=== PATIENT | female | born 1930 | race Caucasian/White ===

== ENCOUNTER → 2017-08-31 | Outpatient (CLI) | payer MEDICARE, BC ==
[~2017-08-31] MED LIST: DENOSUMAB 60 MG/ML 1 ML SYRINGE SQ ONE
[2017-08-31 13:48] VITALS: BP 113/71; PULSE 81; RESP 16; TEMP 98.1
== END ==
LOC: PROCWHC3 13:29
PROVIDERS: ATTEND Internal Medicine Geriatric Medicine
DX: M81.0 Age-related osteoporosis without current pathological fracture (principal)
CPT/HCPCS: 96372; J0897

== ENCOUNTER → 2018-03-17 | Outpatient (CLI) | payer MEDICARE, BC ==
[~2018-03-17] MED LIST changes: +DENOSUMAB 60 MG/ML 1 ML SYRINGE SQ NR; -DENOSUMAB 60 MG/ML 1 ML SYRINGE SQ ONE
[2018-03-17 14:07] VITALS: BP 130/71; PULSE 77; RESP 16; TEMP 98.1
== END ==
LOC: PROCWHC3 13:45
PROVIDERS: ATTEND Internal Medicine Geriatric Medicine
DX: M81.0 Age-related osteoporosis without current pathological fracture (principal)
CPT/HCPCS: 96372; J0897

== ENCOUNTER 2018-08-20 20:37 | Emergency (ER) | payer MEDICARE, BC ==
--- NOTE | 2018-08-20 21:29 | ED ---
Abdominal Pain HPI - General Chief Complaint: Abdominal Pain Stated Complaint: poss kidney stone Time Seen by Provider: 08/20/18 21:06 Source: patient Mode of arrival: wheelchair Limitations: no limitations - History of Present Illness Initial Comments: This patient is an 87-year-old woman who presents with left flank pain. She states that the pain started at approximate 7 PM tonight while she was just lying down. She is not able to characterize the pain well, even when offered different descriptors. She states that the pain was more severe but is now mild intensity. She has not noted worsening or relieving factors. She has not noted any associated symptoms. She believes that it is similar to the pain she had associated with a kidney stone which she had in 2017. MD Complaint: flank pain Onset/Timin -: hour(s) Location: L flank Radiation: none Migration to: no migration Severity: mild Quality: other (Unable to characterize) Consistency: constant Improves With: nothing Worsens With: nothing Associated Symptoms: denies other symptoms - Related Data Home Medications Medication Instructions Recorded Confirmed Ergocalciferol [Vitamin D2 50,000 unit PO [id number] 07/10/14 08/20/18 (DRISDOL)] Fluticasone/Salmeterol [Advair 1 puff INHALATION RT-DAILY 07/10/14 08/20/18 500-50 Diskus] Melatonin 3 mg PO HS 07/10/14 08/20/18 Citalopram Hydrobromide [CeleXA] 10 mg PO DAILY 08/28/14 08/20/18 ALPRAZolam [Xanax] 0.5 mg PO DAILY PRN 10/28/14 08/20/18 Anastrozole [Arimidex] 1 mg PO DAILY 10/28/14 08/20/18 Aspirin EC [Ecotrin] 81 mg PO DAILY 10/28/14 08/20/18 Pyridostigmine [Mestinon] 60 mg PO BID@1130,2130 03/29/15 08/20/18 Pyridostigmine [Mestinon] 1,200 mg PO BID@0630,1630 08/20/18 08/20/18 Previous Rx's Medication Instructions Recorded Ciprofloxacin HCl [Cipro] 500 mg PO Q12HR #14 tablet 08/20/18 Tamsulosin [Flomax] 0.4 mg PO DAILY #14 cap 08/20/18 Allergies Allergy/AdvReac Type Severity Reaction Status Date / Time amoxicillin trihydrate AdvReac Nausea & Verified 08/20/18 21:07 [From Augmentin] Vomiting potassium clavulanate AdvReac Nausea & Verified 08/20/18 21:07 [From Augmentin] Vomiting Review of Systems ROS Statement: Those systems with pertinent positive or pertinent negative responses have been documented in the HPI. ROS Other: All systems not noted in ROS Statement are negative. Constitutional: Denies: fever, chills Respiratory: Denies: cough, dyspnea Cardiovascular: Denies: chest pain, palpitations, edema, syncope Gastrointestinal: Reports: as per HPI, abdominal pain. Denies: nausea, vomiting , diarrhea, constipation, melena Genitourinary: Denies: urgency, dysuria, hematuria Musculoskeletal: Denies: back pain Skin: Denies: rash Neurological: Denies: headache, weakness, numbness Past Medical History Past Medical History: Asthma, Cancer, Eye Disorder, Hearing Disorder / Deafness , Hyperlipidemia, Osteoarthritis (OA), Skin Disorder, Vascular Disorder Additional Past Medical History / Comment(s): ONSET DOUBLE VISION 03/2014, IMPROVING. HX BREAST, SKIN CA. WHITE SPOTS ON FOREHEAD, UNSURE OF CAUSE/COND. 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 VARICOSE VEINS. History of Any Multi-Drug Resistant Organisms: None Reported Past Surgical History: Breast Surgery, Cholecystectomy, Hysterectomy Additional Past Surgical History / Comment(s): KIDNEY STONE SURG. SINUS SURG. ORIF LT FEMUR - CARTER PLACED. RT PARTIAL MASTECTOMY. Hx.polyps removed from nose Jun 2014 Past Anesthesia/Blood Transfusion Reactions: No Reported Reaction Past Psychological History: Anxiety, Depression Smoking Status: Never smoker Past Alcohol Use History: None Reported Past Drug Use History: None Reported - Past Family History Mother Family Medical History: Cancer General Exam Limitations: no limitations General appearance: alert, in no apparent distress Head exam: Present: atraumatic, normocephalic Eye exam: Present: normal appearance. Absent: scleral icterus, conjunctival injection Respiratory exam: Present: normal lung sounds bilaterally. Absent: respiratory distress, wheezes, rales, rhonchi, stridor Cardiovascular Exam: Present: regular rate, normal rhythm, normal heart sounds. Absent: systolic murmur, diastolic murmur, rubs, gallop GI/Abdominal exam: Present: soft. Absent: distended, tenderness, guarding, rebound, rigid, mass, pulsatile mass, hernia Extremities exam: Present: normal inspection, normal capillary refill. Absent: pedal edema, calf tenderness Back exam: Present: normal inspection. Absent: CVA tenderness (R), CVA tenderness (L), paraspinal tenderness, vertebral tenderness Neurological exam: Present: alert, normal gait Skin exam: Present: warm, dry, intact, normal color. Absent: rash Course Vital Signs 08/20/18 20:38 Temperature 98.7 F Pulse Rate 82 Respiratory 18 Rate Blood Pressure 138/69 O2 Sat by Pulse 95 Oximetry Medical Decision Making - Medical Decision Making This patient is an 87-year-old woman presenting with left flank pain that she states is identical to previous kidney stone. The workup does reveal appears to be 5 mm ureteral stone. When the patient did return from computed tomography scan her symptoms completely resolved. It does appear she may have passed the stone. The patient case discussed with Dr. Cabrera, given the urine findings associated with the stone. Patient was started on antibiotic, and follow with clinic Thursday. If she has any recurrence of pain, if she develops fever if she develops any other symptoms she will return here. - Lab Data Result diagrams: 08/20/18 21:40 08/20/18 21:40 Lab Results 08/20/18 08/20/18 08/20/18 Range/Units 21:29 21:40 21:40 WBC 10.7 H (3.8-10.6) k/uL RBC 4.02 (3.80-5.40) m/uL Hgb 11.7 (11.4-16.0) gm/dL Hct 36.9 (34.0-46.0) % MCV 91.6 (80.0-100.0) fL MCH 29.1 (25.0-35.0) pg MCHC 31.7 (31.0-37.0) g/dL RDW 13.3 (11.5-15.5) % Plt Count 341 (150-450) k/uL Neutrophils % 79 % Lymphocytes % 8 % Monocytes % 5 % Eosinophils % 6 % Basophils % 1 % Neutrophils # 8.5 H (1.3-7.7) k/uL Lymphocytes # 0.9 L (1.0-4.8) k/uL Monocytes # 0.5 (0-1.0) k/uL Eosinophils # 0.6 (0-0.7) k/uL Basophils # 0.1 (0-0.2) k/uL Sodium 138 (137-145) mmol/L Potassium 4.4 (3.5-5.1) mmol/L Chloride 115 H (98-107) mmol/L Carbon Dioxide 25 (22-30) mmol/L Anion Gap -2 mmol/L BUN 21 H (7-17) mg/dL Creatinine 0.78 (0.52-1.04) mg/dL Est GFR (CKD-EPI)AfAm 80 (>60 ml/min/1.73 sqM) Est GFR (CKD-EPI)NonAf 69 (>60 ml/min/1.73 sqM) Glucose 110 H (74-99) mg/dL Calcium 9.5 (8.4-10.2) mg/dL Total Bilirubin 0.4 (0.2-1.3) mg/dL AST 30 (14-36) U/L ALT 22 (9-52) U/L Alkaline Phosphatase 89 (38-126) U/L Total Protein 7.0 (6.3-8.2) g/dL Albumin 3.7 (3.5-5.0) g/dL Amylase 82 (30-110) U/L Lipase 88 (23-300) U/L Urine Color Light Red Urine Appearance Cloudy H (Clear) Urine pH 5.5 (5.0-8.0) Ur Specific [place] 1.017 (1.001-1.035) Urine Protein 1+ H (Negative) Urine Glucose (UA) Negative (Negative) Urine Ketones Negative (Negative) Urine Blood Large H (Negative) Urine Nitrite Negative (Negative) Urine Bilirubin Negative (Negative) Urine Urobilinogen <2.0 (<2.0) mg/dL Ur Leukocyte Esterase Moderate H (Negative) Urine RBC >182 H (0-5) /hpf Urine WBC 94 H (0-5) /hpf Ur Squamous Epith Cells 1 (0-4) /hpf Urine Mucus Few H (None) /hpf Urine Yeast (Budding) Few H (None) /hpf Disposition Clinical Impression: Kidney stone on left side Disposition: HOME SELF-CARE Condition: Good Instructions: Kidney Stones (ED) Prescriptions: Ciprofloxacin HCl [Cipro] 500 mg PO Q12HR #14 tablet Tamsulosin [Flomax] 0.4 mg PO DAILY #14 cap Is patient prescribed a controlled substance at d/c from ED?: No Referrals: Carlos Man MD [Primary Care Provider] - 1-2 days Frank Cabrera MD [STAFF PHYSICIAN] - 1-2 days
[2018-08-20 21:43] LABS: Appearance,Urine Cloudy (Clear); Bilirubin,Urine Negative (Negative); Blood,Urine Large (Negative); Budding Yeast,Urine Few /hpf; Color,Urine Light Red; Glucose,Urine (UA) Negative (Negative); Ketones,Urine Negative (Negative); Leukocyte Esterase,Urine Moderate (Negative); Mucus,Urine Few /hpf; Nitrite,Urine Negative (Negative); PH, Urine 5.5 (5.0-8.0); Protein,Urine 1+ (Negative); RBC,Urine >182 /hpf (0-5); Specific Gravity,Urine 1.017 (1.001-1.035); Squamous Epithelial Cell,Urine 1 /hpf (0-4); Urobilinogen,Urine <2.0 mg/dL (<2.0); WBC,Urine 94 /hpf (0-5)
[2018-08-20 21:49] LABS: Basophils # (A) 0.1 k/uL (0-0.2); Basophils % (A) 1 %; Eosinophils # (A) 0.6 k/uL (0-0.7); Eosinophils % (A) 6 %; HCT 36.9 % (34.0-46.0); HGB 11.7 gm/dL (11.4-16.0); Lymphocytes # (A) 0.9 k/uL (1.0-4.8); Lymphocytes % (A) 8 %; MCH 29.1 pg (25.0-35.0); MCHC 31.7 g/dL (31.0-37.0); MCV 91.6 fL (80.0-100.0); Mean Platelet Volume 6.4; Monocytes # (A) 0.5 k/uL (0-1.0); Monocytes % (A) 5 %; Neutrophils # (A) 8.5 k/uL (1.3-7.7); Neutrophils % (A) 79 %; Platelet Count 341 k/uL (150-450); RBC 4.02 m/uL (3.80-5.40); RDW 13.3 % (11.5-15.5); WBC 10.7 k/uL (3.8-10.6)
[2018-08-20] MEDS ORDERED: LEVOFLOXACIN 750 MG TAB PO STA (22:06)
[2018-08-20 22:07] LABS: Albumin 3.7 g/dL (3.5-5.0); Calcium 9.5 mg/dL (8.4-10.2); Potassium 4.4 mmol/L (3.5-5.1); Total Bilirubin 0.4 mg/dL (0.2-1.3)
--- NOTE | 2018-08-20 22:20 | CT ---
EXAMINATION TYPE: CT abdomen pelvis wo con DATE OF EXAM: 08/20/2018 COMPARISON: None HISTORY: left sided flank pain CT DLP: 945 mGycm Automated exposure control for dose reduction was used. TECHNIQUE: Helical acquisition of images was performed from the lung bases through the pelvis. FINDINGS: There is some interstitial density at the lung bases consistent with fibrosis. Liver shows no focal defect. There are numerous clips from cholecystectomy. Spleen appears normal. Th ere is no sign of pancreatic mass. There is mild ectasia of the common bile duct that measures 1.5 cm . There is no adrenal mass. There are numerous calcifications in both kidneys that measure up to 1 cm. There is left-sided hydronephrosis and a 5 mm calculus at the left ureteropelvic junction. There is n o hydronephrosis on the right side. Ureters are not dilated. There is no retroperitoneal adenopathy. There is no mesenteric adenopathy. There is no ascites. There is no sign of free air. There is incarcerated left inguinal hernia that contains bowel. This is probably small bowel. I see n o dilated loops to suggest a mechanical obstruction. There are numerous diverticula in the sigmoid co rigoberto. There is no sign of diverticulitis. Appendix is not seen. There is no sign of appendicitis. Ther e are some spondylotic changes in the lumbar spine. There is no compression fracture. There is a dege nerative mild first-degree L4-5 spondylolisthesis. The abdominal soft tissues are unremarkable. There is intramedullary nathaly in the left femur. IMPRESSION: NUMEROUS BILATERAL RENAL CALCULI. OBSTRUCTING CALCULUS AT THE LEFT URETEROPELVIC JUNCTION. 3 CM HIGH DENSITY MASS ON THE POSTERIOR LEFT KIDNEY IS PROBABLY CYSTIC CONTAINING CALCIUM. ATHEROSCLEROTIC VASCULAR DISEASE. INCARCERATED LEFT INGUINAL HERNIA PROBABLY CONTAINS SMALL BOWEL WIT HOUT EVIDENCE OF A MECHANICAL OBSTRUCTION. FIBROTIC CHANGES AT THE LUNG BASES.
[2018-08-20] MEDS ORDERED: TAMSULOSIN 0.4 MG CAP.ER.24H PO STA (22:25)
[2018-08-20 22:56] VITALS: BP 156/68; PULSE 88; RESP 20; TEMP 97.5
== END 2018-08-20 23:06 | disposition home or self-care (01) ==
LOC: EC 20:37
DX: N20.2 Calculus of kidney with calculus of ureter (principal); J45.909 Unspecified asthma, uncomplicated; F32.9 Major depressive disorder, single episode, unspecified; F41.9 Anxiety disorder, unspecified; Z85.828 Personal history of other malignant neoplasm of skin; Z79.82 Long term (current) use of aspirin; Z79.899 Other long term (current) drug therapy; Z88.0 Allergy status to penicillin; Z90.49 Acquired absence of other specified parts of digestive tract
CPT/HCPCS: 36415; 74176; 80053; 81001; 82150; 83690; 85025; 99284

== ENCOUNTER → 2018-08-27 | Outpatient (CLI) | payer MEDICARE, BC ==
--- NOTE | 2018-08-27 12:56 | XR ---
Abdomen History: ureter stone Frontal view of the abdomen correlated to CT abdomen pelvis 08/20/2018 Multiple punctate calcifications are present within the right kidney numbering approximately 20. Mult iple calcifications also present within the left kidney. Overlying bowel gas may obscure detail, the ureteral calculus is not identified with certainty. Multiple calcifications also present within the p uri. Lung bases are clear. Bone mineralization is reduced. Osteoarthritic changes present within th e hips, postop change noted to the left femur. IMPRESSION: Bilateral nephrolithiasis with limitations as described.
== END ==
LOC: RADXRMAIN 12:14
PROVIDERS: ATTEND Urology
DX: N20.2 Calculus of kidney with calculus of ureter (principal)
CPT/HCPCS: 74018

== ENCOUNTER → 2018-09-21 | Outpatient (CLI) | payer MEDICARE, BC ==
[~2018-09-21] MED LIST changes: -DENOSUMAB 60 MG/ML 1 ML SYRINGE SQ NR; +DENOSUMAB 60 MG/ML 1 ML SYRINGE SQ ONE
[2018-09-21 14:44] VITALS: BP 126/72; PULSE 79; RESP 16; TEMP 98.2
== END | disposition home or self-care (01) ==
LOC: PROCWHC3 14:09
PROVIDERS: ATTEND Internal Medicine Geriatric Medicine
DX: M81.0 Age-related osteoporosis without current pathological fracture (principal)
CPT/HCPCS: 96372; J0897

== ENCOUNTER → 2019-12-06 | Outpatient (CLI) | payer MEDICARE, BC ==
[~2019-12-06] MED LIST changes: +DENOSUMAB 60 MG/ML 1 ML SYRINGE SQ NR; -DENOSUMAB 60 MG/ML 1 ML SYRINGE SQ ONE
[2019-12-06 14:30] VITALS: BP 139/67; PULSE 61; RESP 16; TEMP 97.9
== END | disposition home or self-care (01) ==
LOC: PROCWHC3 13:30
PROVIDERS: ATTEND Internal Medicine Geriatric Medicine
DX: M81.0 Age-related osteoporosis without current pathological fracture (principal)
CPT/HCPCS: 96372; J0897

== ENCOUNTER → 2020-06-11 | Outpatient (CLI) | payer MEDICARE, BC ==
[2020-06-11 11:15] VITALS: BP 145/66; PULSE 98; RESP 16; TEMP 98
== END | disposition home or self-care (01) ==
LOC: PROCWHC3 09:58
PROVIDERS: ATTEND Internal Medicine Geriatric Medicine
DX: M81.0 Age-related osteoporosis without current pathological fracture (principal)
CPT/HCPCS: 96372; J0897

== ENCOUNTER → 2021-01-10 | Outpatient (CLI) | payer MEDICARE, BC ==
[~2021-01-10] MED LIST changes: -DENOSUMAB 60 MG/ML 1 ML SYRINGE SQ NR; +DENOSUMAB 60 MG/ML 1 ML SYRINGE SQ ONE
[2021-01-10 09:45] VITALS: BP 127/68; PULSE 99; RESP 16; TEMP 98.4
== END | disposition home or self-care (01) ==
LOC: PROCWHC3 09:32
PROVIDERS: ATTEND Nurse Practitioner Family
DX: M81.0 Age-related osteoporosis without current pathological fracture (principal)
CPT/HCPCS: 96372; J0897

== ENCOUNTER → 2021-07-18 | Outpatient (CLI) | payer MEDICARE, BC ==
[~2021-07-18] MED LIST changes: +DENOSUMAB 60 MG/ML 1 ML SYRINGE SQ NR; -DENOSUMAB 60 MG/ML 1 ML SYRINGE SQ ONE
[2021-07-18 10:02] VITALS: BP 116/76; PULSE 102; RESP 16; TEMP 98.4
== END | disposition home or self-care (01) ==
LOC: PROCWHC3 09:44
PROVIDERS: ATTEND Nurse Practitioner Family
DX: M81.0 Age-related osteoporosis without current pathological fracture (principal)
CPT/HCPCS: 96372; J0897